=== PATIENT | male | born 1990 | race Caucasian/White ===

== ENCOUNTER 2016-07-09 03:06 | Emergency (ER) | payer SELFPAY ==
--- NOTE | ~2016-07-09 | CT4 ---
[facility] A Service of [facility] & [facility] RADIOLOGY TEXT RESULTS PATIENT: NÉSTOR HAJI LOCATION: [facility] : 86 UNIT #: [id number] AGE: [address]: Mary Kessler APRN SEX: M ORDER DR: [id number] [facility] [address] [place], [place] [address] [id number] E MR#: [id number] #: [id number] NAME: NÉSTOR HAJI : 1990 SEX: M STUDY DATE/TIME: 07/09/2016 02:55 UNIT: [facility] ROOM: STUDY DESCRIPTION: CT Abd and Pelv Wo Cont Attending Physician: Mary Kessler A.P.R.N. Ordering Physician: Mary Kessler A.P.R.N. Primary Care Physician: Primary Care Physician No MEDICAL IMAGING REPORT This report is preliminary unless electronic signature is present EXAM CT abdomen and pelvis, 07/09 at 02:55 INDICATION Left flank and mid back pain that started today. Pain is 10/10. TECHNIQUE Axial images were obtained through the abdomen and pelvis without contrast. Multiplanar reformats were obtained. This CT exam was performed with one or more of the following radiation dose reduction techniques: automatic exposure control, adjustment of mA and/or kV according to patient size, and iterative reconstruction. COMPARISON No comparison. FINDINGS ABDOMEN: The lung bases are clear. Gallbladder is contracted. No renal or ureteral stones are seen. There is no hydronephrosis. The unenhanced solid organs are normal. The unopacified GI tract is normal. PELVIS: There are no lower ureteral stones. The bladder is normal. The appendix is normal. There is some feculent material in distal small bowel loops which may indicate some stasis. There is nothing to suggest a bowel obstruction at this time. No fracture or malalignment is identified in the lumbar spine. No significant disc bulging or herniation is seen. IMPRESSION 1. No renal or ureteral stones. No hydronephrosis. 2. Normal lumbar spine. 3. There is some feculent material in distal ileal loops in the pelvis suggesting some stasis. No bowel obstruction is identified, and the [facility] A Service of [facility] & [facility] RADIOLOGY TEXT RESULTS PATIENT: NÉSTOR HAJI LOCATION: [facility] : [birth year] UNIT #: [id number] AGE: [address]: Mary Kessler APRN SEX: M ORDER DR: appendix is normal. Dictated by... Pb Hennessy Jr., M.D. THIS IS AN ELECTRONICALLY VERIFIED REPORT Pb Hennessy Jr., M.D. at 07/09/2016 10:02 PM ZEINA/bill TD: 07/09/2016 08:14 JOB #: [id number] MEDICAL IMAGING REPORT COPY
[2016-07-09 02:11] LABS: POC - CKMB <1.0 ng/mL (0.0-7.9); POC - TROPONIN <0.05 ng/mL (<=0.05)
[2016-07-09 02:52] LABS: BASOPHIL# 0.1 X10e3 (0-0.3); BASOPHIL% 1.1 % (0-2.5); EOSINOPHIL# 0.3 X10e3 (0-0.7); EOSINOPHIL% 3.7 % (0.0-7.0); HEMATOCRIT 46.3 % (38.0-50.0); HEMOGLOBIN 15.8 gm/dL (13.0-16.0); LYMPHOCYTE# 2.6 X10e3 (1.0-3.5); LYMPHOCYTE% 29.1 % (17.0-45.0); MEAN CELL VOLUME 87.5 FL (83-96); MEAN CORPUSCULAR HEMOGLOBIN 29.9 PG (28-34); MEAN CORPUSCULAR HGB CONC 34.2 g/dL (30-36); MEAN PLATELET VOLUME 7.6 FL (6.5-11.5); MONOCYTE# 0.8 X10e3 (0-1.0); MONOCYTE% 9.3 % (3.0-12.0); NEUTROPHIL# 5.1 X10e3 (1.5-7.1); NEUTROPHIL% 56.8 % (40-75); PLATELET COUNT 244 X10e3 (140-420); RED BLOOD COUNT 5.29 X10e (3.90-5.60); RED CELL DISTRIBUTION WIDTH 13.5 % (11.0-15.5); WHITE BLOOD COUNT 8.9 X10e3 (4.0-10.5)
[2016-07-09 02:53] LABS: DIFF IND NO
[~2016-07-09 03:06] MED LIST: BACTRIM DS TABL1 TA2 PO; KEFLEX500 M1 PO; MOBIC PO; NO MEDICATIONS; VICODIN 5/500 T1 TAB PO
[2016-07-09 03:13] LABS: ALBUMIN SERUM 4.7 g/dL (3.5-5.0); ALKALINE PHOSPHATASE 100 U/L (32-92); ALT (SGPT) 13 U/L (10-40); AMYLASE 24 U/L (0-46); AST (SGOT) 17 U/L (10-42); BILIRUBIN, DIRECT 0.1 mg/dL (0.0-0.2); BILIRUBIN,TOTAL 1.1 mg/dL (0.2-2.0); BLOOD UREA NITROGEN 12 mg/dL (9-23); BUN/CREATININE RATIO 17.14; CALCIUM SERUM 9.2 mg/dL (8.4-10.2); CARBON DIOXIDE 27 mmol/L (22-31); CHLORIDE 102 mmol/L (100-111); CREATININE SERUM 0.7 mg/dL (0.6-1.4); GLOM FILT RATE Estimated ABOVE60 mL/min (>60); GLUCOSE FASTING 110 mg/dL (70-110); LIPASE 22 U/L (22-51); POTASSIUM 3.6 mmol/L (3.5-5.1); PROTEIN TOTAL SERUM 7.4 g/dL (6.0-8.3); SODIUM 137 mmol/L (135-145)
[2016-07-09 03:27] LABS: URINE SOURCE CLEAN CATCH
[2016-07-09 03:31] LABS: URINE APPEARANCE TURBID; URINE BILIRUBIN NEG (NEG); URINE BLOOD NEG (NEG); URINE COLOR YELLOW; URINE GLUCOSE NEG (NEG); URINE KETONE NEG (NEG); URINE LEUKOCYTE ESTERASE NEG (NEG); URINE NITRATE NEG (NEG); URINE PH 6.5 (5-8); URINE PROTEIN NEG (NEG); URINE SPECIFIC GRAVITY 1.021 (1.003-1.035); URINE UROBILINOGEN 0.2 MG/DL (NEG)
[2016-07-09 03:34] LABS: CULTURE INDICATED? NO
== END 2016-07-09 04:07 | disposition home or self-care (01) ==
LOC: CED 03:06
PROVIDERS: Nurse Practitioner
DX: S39.011A Strain of muscle, fascia and tendon of abdomen, initial encounter (principal); F17.210 Nicotine dependence, cigarettes, uncomplicated
CPT/HCPCS: 36415; 74176; 80048; 80076; 81003; 82150; 82553; 83690; 84484; 85025; 96374; 96375; 99284; J1885; J2405